=== PATIENT | female | born 1940 | race Caucasian/White ===

== ENCOUNTER 2017-08-29 09:27 | Day surgery (SDC) | payer MEDICARE, OTHER ==
[~2017-08-29] VITALS: Ht 168.9 cm; Wt 65.3 kg
[~2017-08-29 09:27] MED LIST: ALENDRONATE SOD70 MG PO; BIOTIN5 MG PO; FOLIC ACID1 MG PO; GLUCOPHAGE1000 MG PO; METHOTREXA25 MG/1 M5 IM; METOPROLOL TART50 MG PO; MULTI-DAY VITAM1 TAB PO; PEPCID20 MG PO; PREDNISONE5 MG PO; VITAMIN D2000 UNIT PO; ZOVIRAX400 MG PO
[2017-08-29 10:27] LABS: HEMATOCRIT 44.8 % (36.0-48.0); HEMOGLOBIN 14.8 g/dL (12-16); MCH 34.3 pg (26.0-34.0); MCV 103.9 fL (80.0-100.0); MEAN PLATELET VOLUME 11.1 fL (7.4-10.4); RBC 4.31 10x6/uL (4.00-5.40); RDW 14.7 % (11.5-14.5); WBC 8.7 10x3/uL (4.8-10.8)
[2017-08-29 10:44] LABS: ANION GAP 15.6 mmol/L (8-16); CALCIUM 9.2 mg/dL (8.5-10.1); CARBON DIOXIDE 24.1 mmol/L (21.0-32.0); CREATININE - SERUM 1.1 mg/dL (0.6-1.3); POTASSIUM - SERUM 3.7 mmol/L (3.5-5.1)
[2017-08-29 10:54] VITALS: Ht 168.9 cm; Wt 65.3 kg
--- NOTE | 2017-08-29 17:16 | NUR ---
1715--IV QAMAR MENSAH RN
--- NOTE | 2017-08-29 17:51 | NUR ---
1745--DISCHARGE INSTRUCTIOSN GIVEN, PT VERBALZIES UNDERSTANDING. PT OFF UNIT VIA MARTINEZ. MAKENNA RANGEL
--- NOTE | 2017-09-27 13:26 | OP ---
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 POSTOPERATIVE DIAGNOSES: Tubulovillous adenoma at 80 cm, with 2 other sessile polyps, both less than 1.2 cm. PROCEDURES: 1. Total colonoscopy to cecum. 2. Hot biopsy forceps polypectomies times 2. 3. Colonic polypectomy utilizing the argon plasma shirring tender. SURGEON: Carloz Kevin MD TRACER CLERK: None. BLOOD LOSS: Minimal. ANESTHESIA: General. COMPLICATIONS: None. The risks, possible complications and alternatives to the procedure were explained to the patient. She elects to proceed. OPERATIVE COURSE: The patient was conveyed to the operating room electively on 08/29/2017. General anesthesia was induced by the anesthesia staff. The patient was placed in the Haywood position. A digital rectal examination was performed. The colonoscope was inserted through the anus. It was easily advanced to the cecum. The prep was adequate. I slowly withdrew the endoscope. The pullback was greater than 19-minute pullback. I dragged the folds. I irrigated and aspirated extensively. Two colon polyps were noted and they were removed utilizing the hot biopsy forceps polypectomy technique. Mild pandiverticulosis was noted. Another polyp on a fold in the proximal transverse colon was noted. It was cold biopsied multiply and then the polypoid base was ablated with the argon plasma shirring tender utilizing the right colon setting in the forced mode. A retroflexed view was obtained in the rectum. I then unretroflexed the scope and removed it under direct vision. I will see the patient in my office in 2-3 weeks. I will plan for a repeat colonoscopy with the argon plasma shirring tender in 1 year. TRANSINT:[id number] Voice Confirmation ID: [id number] DOCUMENT ID: [id number] OPERATIVE REPORT [id number] STEVEN BRAXTON CARLOZ KEVIN MD at 1326 CC: TRAMAINE TOLENTINO and MAX TAYLOR MD [id number] DICTATION DATE: 08/29/17 1623 FABRICATION MANAGER: 08/29/17 1720 [facility] 08/29/[address] [facility] [address] [place] [address]
--- NOTE | 2017-09-27 13:26 | HP ---
PATIENT: STEVEN BRAXTON MEDICAL RECORD: [id number] ACCOUNT: [id number] LOCATION:[facility] : 38 ADMISSION DATE: 08/29/17 HISTORY AND PHYSICAL EXAMINATION ADDENDUM This is a history and physical addendum. There is a typed history and physical on the chart. I reviewed the risks, possible complications and alternatives of the procedure with the patient. She elects to proceed. There was a tubulovillous adenoma at 80 cm. I have personally reviewed the endoscopic photos. I personally reviewed the endoscopic report. TRANSINT:[id number] Voice Confirmation ID: [id number] DOCUMENT ID: [id number] CARLOZ KEVIN MD at 1326 CC: [id number] DICTATION DATE: 08/29/17 1626 SUPERVISOR FIBER LOCKING: 08/29/17 1702 [facility] 08/29/17 [id number] [place] [address]
== END 2017-08-29 17:45 | disposition home or self-care (01) ==
LOC: D.OPS 09:27 → D.PAN 10:00 → D.OPS 10:15 → D.PAN 12:00 → D.OPS 17:45
PROVIDERS: Anesthesiology
DX: D12.4 Benign neoplasm of descending colon (principal); D12.3 Benign neoplasm of transverse colon; K63.5 Polyp of colon; K57.30 Diverticulosis of large intestine without perforation or abscess without bleeding; Z01.812 Encounter for preprocedural laboratory examination

== ENCOUNTER 2018-11-05 09:26 | Day surgery (SDC) | payer MEDICARE, OTHER ==
[~2018-11-05] VITALS: Ht 168.9 cm; Wt 62.7 kg
[2018-11-05] MEDS ORDERED: GLIMEPIRIDE2 MG PO (10:46)
[2018-11-05] MEDS ORDERED: MECLIZINE HCL25 MG PO (10:46)
[2018-11-05] MEDS ORDERED: ASPIRIN81 MG PO (10:49)
[2018-11-05] MEDS ORDERED: PLAVIX75 MG PO (10:50)
[2018-11-05 10:58] VITALS: BP 141/92; Ht 168.9 cm; Wt 62.7 kg
--- NOTE | 2018-11-05 18:15 | NUR ---
PT RESTING QUIETLY IN BED. DENIES PAIN/NEEDS AT THIS TIME. DC INSTRUCTIONS GIVEN TO PT/FAMILY. STATE UNDERSTANDING. WAITING FOR X-RAY RESULTS BEFORE DC.
--- NOTE | 2018-11-05 18:39 | NUR ---
X-RAY REPORT WAS CALLED TO [facility] UNIT. NO FREE AIR. WILL DC PT SHORTLY
--- NOTE | 2018-11-05 18:40 | NUR ---
DC INSTRUCTIONS GIVEN TO PT/FAMILY. STATE UNDERSTANDING. DC'D IV CATH FULLY INTACT.
--- NOTE | 2018-11-05 18:44 | NUR ---
PT LEFT UNIT VIA WC AT 1848
--- NOTE | 2018-11-06 22:13 | OP ---
PATIENT NAME: STEVEN BRAXTON MEDICAL RECORD: [id number] :38 LOCATION:D.OPS ADMISSION DATE: SURGEON: CARLOZ KEVIN MD DATE OF OPERATION: 11/05/2018 PRINCIPAL DIAGNOSIS: Complex ascending colon polyp. POSTOPERATIVE DIAGNOSES: Complex polyp involving the inferior lip of the ileocecal valve. PROCEDURES: 1. Total colonoscopy to cecum. 2. Endoscopic mucosal resection, polypectomy of the inferior lip ileocecal valve polyp. SURGEON: Carloz Kevin MD PHARMACY DIRECTOR: None. BLOOD LOSS: Minimal. ANESTHESIA: IV sedation. COMPLICATIONS: None. The risks, possible complications, and alternatives to procedure were explained to the patient. She elects to proceed. The discussion specifically included, but was not limited to, bleeding requiring emergency reoperation, infection, and endoscopic perforation. ENDOSCOPIC COURSE: The patient was conveyed to endoscopy suite electively on 11/05/2018. IV sedation was induced by the anesthesia staff. The patient was placed in the Haywood position. A digital rectal examination was performed. A colonoscope was inserted through the anus. It was easily advanced to the cecum. Upon withdrawal, I irrigated and aspirated extensively. I dragged the folds. A combination of normal imaging and narrow band imaging were utilized. There was a polypoid lesion that was best seen with narrow band imaging on the inferior lip of the ileocecal valve. I think this represent a polyp and not a strange looking ileocecal valve. I advanced a sclerotherapy needle. A submucosal injection of Eleview was performed. This achieved a good lift to the polyp. I then advanced an endoscopic snare. I then snared the base of the polyp. I then advanced the argon plasma printed circuit board panels deburrer. I used this with the right colon setting in the forced mode to cauterize back the surrounding polypoid-appearing tissue. I grasped the polyp with an endoscopic retrieval net and withdrew the polyp out through the anus. I will see the patient in my office in 2-3 weeks. It is very likely I will recommend another colonoscopy utilizing the argon plasma printed circuit board panels deburrer to take place in 1 year. TRANSINT:[id number] Voice Confirmation ID: [id number] DOCUMENT ID: [id number] OPERATIVE REPORT [id number] STEVEN BRAXTON CARLOZ KEVIN MD at 2803 CC: TRAMAINE TOLENTINO and MAX TAYLOR [id number] DICTATION DATE: 11/05/18 1721 SOFTWARE DEVELOPER CONSULTANT: 11/05/18 2159 [facility] 11/05/18 [id number] [place] [address]
== END 2018-11-05 18:48 | disposition home or self-care (01) ==
LOC: D.OPS 09:26
DX: K63.5 Polyp of colon (principal)